=== PATIENT | male | born 1945 | race Caucasian/White ===

== ENCOUNTER 2017-09-14 22:54 | Inpatient (IN) | payer OTHER, MEDICAID ==
[~2017-09-14] VITALS: Ht 172.7 cm; Wt 72.6 kg
[2017-09-15] VITALS (8 sets, daily range): BP systolic 126–157
[2017-09-15] MEDS ORDERED: DEXTROSE 50% JECT 50 ML DISP.SYRIN IVP PRN (06:00)
[2017-09-15 07:32] LABS: BASOPHILS # (AUTO) 0.1 K/uL (0.0-0.2); BASOPHILS % (AUTO) 0.7 % (0.0-2.0); EOSINOPHILS # (AUTO) 0.4 K/uL (0.0-0.4); EOSINOPHILS % (AUTO) 2.8 % (0.0-4.0); HEMATOCRIT 40.6 % (36-54); HEMOGLOBIN 13.4 g/dL (14.0-18.0); LYMPHOCYTES # (AUTO) 1.9 K/uL (1.0-5.5); LYMPHOCYTES % (AUTO) 13.2 % (20.5-51.5); MEAN CORPUSCULAR HEMOGLOBIN 30 pg (27-31); MEAN CORPUSCULAR HGB CONC 33 % (32-36); MEAN CORPUSCULAR VOLUME 91 fL (79.0-98.0); MONOCYTES # (AUTO) 0.9 K/uL (0.0-1.0); MONOCYTES % (AUTO) 6.1 % (1.7-9.3); NEUTROPHILS # (AUTO) 11.1 K/uL (1.8-7.7); NEUTROPHILS % (AUTO) 77.2 % (40.0-70.0); PLATELET COUNT (AUTO) 220 K/uL (130-430); RED BLOOD CELL COUNT(AUTO) 4.47 MIL/uL (4.2-6.2); RED CELL DISTRIBUTION WIDTH 12.4 % (9.0-15.0); WHITE BLOOD COUNT (AUTO) 14.4 K/uL (4.8-10.8)
[2017-09-15 07:42] LABS: ANION GAP 9 (5-15); CALCIUM 8.7 mg/dL (8.4-11.0); CHLORIDE 106 mmol/L (98-107); CREATININE 1.69 mg/dL (0.55-1.30); GLUCOSE 157 mg/dL (70-99); POTASSIUM 3.8 mmol/L (3.5-5.1); SODIUM SERUM 141 mmol/L (136-145); UREA NITROGEN, BLOOD 24 mg/dL (8-21)
[2017-09-15 07:59] LABS: ALANINE AMINOTRANSFERASE 15 U/L (12-78); ALBUMIN 2.7 g/dL (3.4-4.8); ASPARTATE AMINOTRANSFERASE 19 U/L (10-37); THYROID STIMULATING HORMONE 3.14 uIu/mL (0.36-3.74); TOTAL BILIRUBIN 0.9 mg/dL (0.0-1.0)
[2017-09-15] MEDS ORDERED: IPRATROPIUM BROM 0.5 MG/2.5 ML VIAL.NEB (ATROVENT) INH PRN (11:00)
[2017-09-15] MEDS ORDERED: ASPIRIN 325 MG TABLET PO ONE (11:00)
[2017-09-15] MEDS ORDERED: *HEPARIN PER PHARMACY XX ONE (11:00)
[2017-09-15] MEDS ORDERED: CARVEDILOL 3.125 MG TABLET (COREG) PO ONE (11:00)
[2017-09-15] MEDS ORDERED: ALBUTEROL SULFATE 0.083% 2.5 MG/3 ML VIAL.NEB INH PRN (11:00)
[2017-09-15] MEDS ORDERED: FUROSEMIDE 20 MG/2 ML VIAL IVP ONE (11:00)
[2017-09-15] MEDS ORDERED: FUROSEMIDE 40 MG/4 ML VIAL ONE (11:07)
[2017-09-15] MEDS: ALBUTEROL SULFATE 0.083% 2.5 MG/3 ML VIAL.NEB INH SCH ×4 (11:18→23:48)
[2017-09-15] MEDS: IPRATROPIUM BROM 0.5 MG/2.5 ML VIAL.NEB (ATROVENT) INH SCH ×4 (11:19→23:49)
[2017-09-15] MEDS ORDERED: cefTRIAXone 1 GM IVPB PREMIX 50 ML IV ONE (12:00)
[2017-09-15 12:30] LABS: INR 1.2 (0.80-1.20); PROTHROMBIN TIME 12.3 SECS (9.5-12.5)
[2017-09-15] MEDS ORDERED: HEPARIN SODIUM,PORCINE 2000 UNITS/0.4 ML BOLUS IVP PRN (12:30)
[2017-09-15] MEDS ORDERED: HEPARIN SODIUM,PORCINE 3000 UNITS/0.6 ML BOLUS IVP PRN (12:30)
[2017-09-15] MEDS ORDERED: HEPARIN SODIUM,PORCINE 5000 UNITS/ML VIAL IV ONE (13:00)
[2017-09-15] MEDS ORDERED: AZITHROMYCIN 500 MG in NS 250 ML IV ONE (13:00)
[2017-09-15] MEDS ORDERED: LISINOPRIL 10 MG TABLET (PRINIVIL) PO ONE (13:00)
[2017-09-15] MEDS: HEPARIN 25,000 UNITS in 250 ML PREMIX IV PRN ×2 (13:52→22:10)
[2017-09-15] MEDS: FUROSEMIDE 40 MG/4 ML VIAL IVP SCH (21:54)
[2017-09-15] MEDS: CARVEDILOL 3.125 MG TABLET (COREG) PO SCH (21:55)
[2017-09-16] MEDS: ALBUTEROL SULFATE 0.083% 2.5 MG/3 ML VIAL.NEB INH SCH ×6 (03:00→23:00)
[2017-09-16] MEDS: IPRATROPIUM BROM 0.5 MG/2.5 ML VIAL.NEB (ATROVENT) INH SCH ×6 (03:00→23:00)
[2017-09-16] MEDS: HEPARIN 25,000 UNITS in 250 ML PREMIX IV PRN ×2 (05:49→09:59)
[2017-09-16 08:00] VITALS: BP_SYST 138
[2017-09-16] MEDS: cefTRIAXone 1 GM IVPB PREMIX 50 ML IV SCH (08:24)
[2017-09-16] MEDS: ASPIRIN 325 MG TABLET PO SCH (08:24)
[2017-09-16] MEDS: CARVEDILOL 3.125 MG TABLET (COREG) PO SCH ×2 (08:25→21:13)
[2017-09-16] MEDS: LISINOPRIL 10 MG TABLET (PRINIVIL) PO SCH (08:25)
[2017-09-16] MEDS: FUROSEMIDE 40 MG/4 ML VIAL IVP SCH ×2 (08:26→21:14)
[2017-09-16] MEDS: AZITHROMYCIN 500 MG in NS 250 ML IV SCH (10:02)
[2017-09-16 12:40] VITALS: BP_SYST 138
[2017-09-16 16:40] VITALS: BP_SYST 129
[2017-09-16 17:03] LABS: ANION GAP 8 (5-15); CALCIUM 8.7 mg/dL (8.4-11.0); CHLORIDE 107 mmol/L (98-107); CREATININE 1.64 mg/dL (0.55-1.30); GLUCOSE 122 mg/dL (70-99); POTASSIUM 3.7 mmol/L (3.5-5.1); SODIUM SERUM 142 mmol/L (136-145); UREA NITROGEN, BLOOD 35 mg/dL (8-21)
[2017-09-16 20:00] VITALS: BP_SYST 121
[2017-09-17] VITALS: BP_SYST 139
[2017-09-17] MEDS: ALBUTEROL SULFATE 0.083% 2.5 MG/3 ML VIAL.NEB INH SCH ×6 (03:00→23:00)
[2017-09-17] MEDS: IPRATROPIUM BROM 0.5 MG/2.5 ML VIAL.NEB (ATROVENT) INH SCH ×6 (03:00→23:00)
[2017-09-17 03:16] LABS: BASOPHILS # (AUTO) 0.3 K/uL (0.0-0.2); BASOPHILS % (AUTO) 1.9 % (0.0-2.0); EOSINOPHILS # (AUTO) 0.8 K/uL (0.0-0.4); EOSINOPHILS % (AUTO) 4.7 % (0.0-4.0); HEMATOCRIT 36.9 % (36-54); HEMOGLOBIN 12.2 g/dL (14.0-18.0); LYMPHOCYTES # (AUTO) 2.3 K/uL (1.0-5.5); LYMPHOCYTES % (AUTO) 13.9 % (20.5-51.5); MEAN CORPUSCULAR HEMOGLOBIN 30 pg (27-31); MEAN CORPUSCULAR HGB CONC 33 % (32-36); MEAN CORPUSCULAR VOLUME 91 fL (79.0-98.0); MONOCYTES # (AUTO) 0.7 K/uL (0.0-1.0); MONOCYTES % (AUTO) 4.4 % (1.7-9.3); NEUTROPHILS # (AUTO) 12.4 K/uL (1.8-7.7); PLATELET COUNT (AUTO) 196 K/uL (130-430); RED BLOOD CELL COUNT(AUTO) 4.07 MIL/uL (4.2-6.2); RED CELL DISTRIBUTION WIDTH 12.4 % (9.0-15.0); WHITE BLOOD COUNT (AUTO) 16.5 K/uL (4.8-10.8)
[2017-09-17] MEDS: HEPARIN 25,000 UNITS in 250 ML PREMIX IV PRN ×2 (03:25→21:40)
[2017-09-17 03:26] LABS: ANION GAP 8 (5-15); CALCIUM 8.6 mg/dL (8.4-11.0); CHLORIDE 103 mmol/L (98-107); CREATININE 1.64 mg/dL (0.55-1.30); GLUCOSE 139 mg/dL (70-99); POTASSIUM 3.3 mmol/L (3.5-5.1); SODIUM SERUM 138 mmol/L (136-145); UREA NITROGEN, BLOOD 36 mg/dL (8-21)
[2017-09-17 03:32] LABS: ALANINE AMINOTRANSFERASE 14 U/L (12-78); ALBUMIN 2.4 g/dL (3.4-4.8); ASPARTATE AMINOTRANSFERASE 20 U/L (10-37); TOTAL BILIRUBIN 0.6 mg/dL (0.0-1.0)
[2017-09-17 03:44] LABS: NEUTROPHILS % (AUTO) 75.1 % (40.0-70.0)
[2017-09-17 07:40] VITALS: BP_SYST 120
[2017-09-17] MEDS: ASPIRIN 325 MG TABLET PO SCH (09:23)
[2017-09-17] MEDS: CARVEDILOL 3.125 MG TABLET (COREG) PO SCH ×2 (09:23→21:39)
[2017-09-17] MEDS: FUROSEMIDE 40 MG/4 ML VIAL IVP SCH ×2 (09:24→21:38)
[2017-09-17] MEDS: LISINOPRIL 10 MG TABLET (PRINIVIL) PO SCH (09:24)
[2017-09-17] MEDS: cefTRIAXone 1 GM IVPB PREMIX 50 ML IV SCH (09:24)
[2017-09-17] MEDS ORDERED: POTASSIUM CHLORIDE 20 MEQ TAB.PRT.SR PO ONE (10:30)
[2017-09-17] MEDS: AZITHROMYCIN 500 MG in NS 250 ML IV SCH (10:39)
[2017-09-17 12:42] VITALS: BP_SYST 111
[2017-09-17] MEDS ORDERED: DEXTROSE 50% JECT 50 ML DISP.SYRIN IVP PRN (14:00)
[2017-09-17 16:49] VITALS: BP_SYST 123
[2017-09-17 21:15] VITALS: BP_SYST 129
[2017-09-18] MEDS: INSULIN REGULAR, HUMAN 100 UNITS/ML, 10 ML VIAL (novoLIN R) SUBCUT PRN ×2 (00:56→12:35)
[2017-09-18 01:10] VITALS: BP_SYST 114
[2017-09-18] MEDS: IPRATROPIUM BROM 0.5 MG/2.5 ML VIAL.NEB (ATROVENT) INH SCH ×4 (03:00→15:43)
[2017-09-18] MEDS: ALBUTEROL SULFATE 0.083% 2.5 MG/3 ML VIAL.NEB INH SCH ×4 (03:00→15:43)
[2017-09-18 05:36] LABS: ALANINE AMINOTRANSFERASE 14 U/L (12-78); ALBUMIN 2.4 g/dL (3.4-4.8); ANION GAP 7 (5-15); ASPARTATE AMINOTRANSFERASE 21 U/L (10-37); CALCIUM 8.5 mg/dL (8.4-11.0); CHLORIDE 104 mmol/L (98-107); CREATININE 1.62 mg/dL (0.55-1.30); GLUCOSE 139 mg/dL (70-99); POTASSIUM 3.8 mmol/L (3.5-5.1); SODIUM SERUM 139 mmol/L (136-145); TOTAL BILIRUBIN 0.5 mg/dL (0.0-1.0); UREA NITROGEN, BLOOD 35 mg/dL (8-21)
[2017-09-18 05:39] LABS: BASOPHILS # (AUTO) 0.1 K/uL (0.0-0.2); BASOPHILS % (AUTO) 0.5 % (0.0-2.0); EOSINOPHILS # (AUTO) 0.9 K/uL (0.0-0.4); EOSINOPHILS % (AUTO) 5.6 % (0.0-4.0); HEMATOCRIT 36.2 % (36-54); HEMOGLOBIN 11.9 g/dL (14.0-18.0); LYMPHOCYTES # (AUTO) 2.3 K/uL (1.0-5.5); LYMPHOCYTES % (AUTO) 15.2 % (20.5-51.5); MEAN CORPUSCULAR HEMOGLOBIN 30 pg (27-31); MEAN CORPUSCULAR HGB CONC 33 % (32-36); MEAN CORPUSCULAR VOLUME 91 fL (79.0-98.0); MONOCYTES # (AUTO) 0.9 K/uL (0.0-1.0); MONOCYTES % (AUTO) 5.9 % (1.7-9.3); NEUTROPHILS # (AUTO) 11.1 K/uL (1.8-7.7); NEUTROPHILS % (AUTO) 72.8 % (40.0-70.0); PLATELET COUNT (AUTO) 200 K/uL (130-430); RED BLOOD CELL COUNT(AUTO) 3.99 MIL/uL (4.2-6.2); RED CELL DISTRIBUTION WIDTH 12.2 % (9.0-15.0); WHITE BLOOD COUNT (AUTO) 15.3 K/uL (4.8-10.8)
[2017-09-18 08:00] VITALS: BP_SYST 120
[2017-09-18 08:18] VITALS: BP_SYST 120
[2017-09-18] MEDS: ASPIRIN 325 MG TABLET PO SCH (09:14)
[2017-09-18] MEDS: cefTRIAXone 1 GM IVPB PREMIX 50 ML IV SCH (09:14)
[2017-09-18] MEDS: LISINOPRIL 10 MG TABLET (PRINIVIL) PO SCH (09:15)
[2017-09-18] MEDS: CARVEDILOL 3.125 MG TABLET (COREG) PO SCH (09:15)
[2017-09-18] MEDS: FUROSEMIDE 40 MG/4 ML VIAL IVP SCH (09:16)
[2017-09-18] MEDS: AZITHROMYCIN 500 MG in NS 250 ML IV SCH (10:33)
[2017-09-18 12:30] VITALS: BP_SYST 123
[2017-09-18] MEDS ORDERED: HUM10VIA7 SUBCUT ×2 (14:11)
[2017-09-18] MEDS ORDERED: CARV3.1246 PO (14:11)
[2017-09-18] MEDS ORDERED: INSU100V9 SUBCUT (14:11)
[2017-09-18] MEDS ORDERED: LISI-209 PO (14:11)
[2017-09-18 16:30] VITALS: BP_SYST 139
[2017-09-18 17:36] VITALS: BP_SYST 110
== END 2017-09-18 19:00 | DRG 682 ==
LOC: STU 09-15 00:25
PROVIDERS: ADMIT Internal Medicine Hospice and Palliative Medicine; ATTEND Internal Medicine Hospice and Palliative Medicine
DX: N17.9 Acute kidney failure, unspecified (principal); I50.21 Acute systolic (congestive) heart failure; J18.9 Pneumonia, unspecified organism; I69.354 Hemiplegia and hemiparesis following cerebral infarction affecting left non-dominant side; I11.0 Hypertensive heart disease with heart failure; E11.65 Type 2 diabetes mellitus with hyperglycemia; E11.649 Type 2 diabetes mellitus with hypoglycemia without coma; I27.20 Pulmonary hypertension, unspecified; I08.3 Combined rheumatic disorders of mitral, aortic and tricuspid valves; Z79.899 Other long term (current) drug therapy; Z79.82 Long term (current) use of aspirin; Z87.891 Personal history of nicotine dependence; Z83.3 Family history of diabetes mellitus
CPT/HCPCS: 36415; 36600; 71045; 80048; 80053; 82803-TC; 82962; 83880; 84443-TC; 84484; 85025; 85610-TC; 85730-TC; 87081; 93306; 94640; 94760; J0456; J0696; J1644; J1940; J7050; J7613